=== PATIENT | female | born 1990 | race Caucasian/White ===

== ENCOUNTER 2020-12-18 03:14 | Emergency (ER) | payer MEDICAID ==
[~2020-12-18] VITALS: Ht 172.7 cm; Wt 95.0 kg
[2020-12-18] MEDS ORDERED: ACETAMINOPHEN 325MG TABLET PO ONE (04:30)
[2020-12-18] MEDS ORDERED: IBUP-2030 MT (05:44)
[2020-12-18] MEDS ORDERED: CLIN300C12 MT (05:44)
[2020-12-18] MEDS ORDERED: HYDR-4001 MT (05:44)
[2020-12-18 06:58] VITALS: BP 122/86
== END 2020-12-18 06:59 | disposition home or self-care (01) ==
LOC: ER 03:38
DX: S02.609A Fracture of mandible, unspecified, initial encounter for closed fracture (principal); Z79.899 Other long term (current) drug therapy; Y04.0XXA Assault by unarmed brawl or fight, initial encounter; Y93.89 Activity, other specified; Y92.89 Other specified places as the place of occurrence of the external cause; Y99.8 Other external cause status
CPT/HCPCS: 70486; 81025; 99285